=== PATIENT | female | born 1980 | race African-American/Black ===

== ENCOUNTER 2019-03-27 17:30 | Emergency (ER) | payer SELFPAY ==
[~2019-03-27] VITALS: Ht 162.6 cm; Wt 66.0 kg
[2019-03-27] MEDS ORDERED: VISCOUS LIDOCAINE 2% 15 ML UDC PO STA (20:18)
[2019-03-27] MEDS ORDERED: MAGNESIUM/ALUMINUM HYDROXIDE/SIMETHICONE 30ML UDC PO STA (20:18)
[2019-03-27] MEDS ORDERED: METHYLPREDNISOLONE SOD SUCC 125 MG/2 ML VIAL IM ONE (20:30)
[2019-03-27] MEDS ORDERED: FAMOTIDINE 20MG TABLET PO ONE (20:30)
[2019-03-27 22:15] VITALS: BP 124/74
== END 2019-03-27 22:30 | disposition home or self-care (01) ==
LOC: ER 17:30
DX: K21.0 Gastro-esophageal reflux disease with esophagitis (principal); M54.2 Cervicalgia
CPT/HCPCS: 71045; 81025; 87070; 87430; 96372; 99284; J2930; Z7610